=== PATIENT | male | born 1955 | race Caucasian/White ===

== ENCOUNTER 2024-07-04 16:19 | Emergency (ER) | payer MEDICARE, SELFPAY ==
[2024-07-04] VITALS (25 sets, daily range): BP systolic 156–183; BP diastolic 87–101; PULSE 58–79; RESP 9–23; TEMP 36.2; O2SAT 84–98
--- NOTE | ~2024-07-04 | XR_ITS ---
XR chest 1V portable Ordering provider: Siobhan Oconnor MD History: 68 years Male with . headache/weakness x2 days . Comparison: None. FINDINGS: MEDIASTINUM: The cardiac silhouette is not enlarged. Congestive peri. LUNGS: No effusions or pneumothorax. Opacification in the left lung base seen suggestive of atelectas is versus pneumonia. OTHER: No free air under the diaphragm. Degenerative spine. IMPRESSION: Left basilar atelectasis versus pneumonia. Reviewed, dictated and finalized at location A.
--- NOTE | ~2024-07-04 | CT_ITS ---
CT brain wo con Ordering provider: Siobhan Oconnor MD History: 68 years Male with . Anterior headache/ dizziness/ weakness x2 days. NKI . Comparison: None. Technique: CT of the head without contrast. Radiation reduction technique utilized.The dose-length product was 605.33 mGy-cm. FINDINGS: BRAIN PARENCHYMA AND CSF SPACES: Mild leukoaraiosis and diffuse cortical atrophy. Mild atheromatous d isease. No midline shift, mass effect or hemorrhage. The brain parenchyma and CSF spaces are otherwi se normal. VISUALIZED PARANASAL SINUSES: Well aerated. MASTOIDS: Well aerated. BONES: The bones appear intact. SOFT TISSUES: Visualized nasopharynx is normal. Superficial soft tissues are normal. IMPRESSION: No acute intracranial findings. Reviewed, dictated and finalized at location A.
--- NOTE | 2024-07-04 16:29 | ED_ITS ---
HPI - Headache General Chief Complaint: Headache Stated Complaint: high blood pressure and headache Time Seen by Provider: 07/04/24 16:28 Source: patient and family Mode of arrival: ambulatory Limitations: no limitations History of Present Illness HPI Narrative: 68 years old white male came from home by private car complaining of left frontal headache, pressure type started 2-3 days ago, patient denies aggravating or relieving factors. He denies any fever, chills, nausea, vomiting, blurry vision, difficulty swallowing or breathing. Patient tried to check his blood pressure today and was elevated, arrival to the ED was 175/90. patient is telling me that his headache is 5/10. History of diabetes, hypertension, hyperlipidemia, stroke 25 years ago with balance disorder and weakness left lower extremity and trouble finding words. Patient currently on MD elicited complaint: headache Related Data Allergies Allergy/AdvReac Type Severity Reaction Status Date / Time Penicillins Allergy Mild Rash Verified 07/04/24 16:30 Review of Systems 2 Review of Systems: All systems reviewed & are unremarkable except as noted in HPI and below Exam 2 Narrative: General appearance: Well-developed, well-nourished Skin: Normal color Head: Normocephalic, nontraumatic Eyes: Clear conjunctiva ENT: Oropharynx normal, ears normal, nose normal Neck: Supple, nontender Chest and respiratory: Airway patent, no respiratory distress, no accessory muscle use Heart: Regular rate/rhythm Abdomen: Soft, nontender, no organomegaly, quiet bowel sounds Vascular: Normal peripheral pulses, normal capillary refill. Musculoskeletal: Normal range of motion, nontender back Neurologic: Alert and oriented ×3, weakness left lower extremity 3/5 Course Vital Signs Vital signs: Vital Signs Temperature 36.2 C L 07/04/24 16:19 Pulse Rate 61 07/04/24 16:19 Respiratory Rate 14 07/04/24 16:19 Blood Pressure 175/90 H 07/04/24 16:19 Pulse Oximetry 97 07/04/24 16:19 Oxygen Delivery Room Air 07/04/24 16:19 Temperature 36.2 C L 07/04/24 16:19 Pulse Rate 59 L 07/04/24 17:28 Respiratory Rate 22 H 07/04/24 17:16 Blood Pressure 160/93 H 07/04/24 17:16 Pulse Oximetry 92 07/04/24 17:16 Oxygen Delivery Room Air 07/04/24 16:19 MDM - Headache MDM Narrative Medical decision making narrative: patient came to the ED from home with his family by private car complaining of left frontal headache 2-3 days ago, pressure type, denies any fever or chills or nausea or vomiting or focal neuro deficit. Vital signs showing blood pressure 175/19 otherwise within normal limit Physical examination no significant abnormality related to his headache Differential diagnosis include stress like symptoms, lack of sleep, intracranial pathology, temporalis arthritis, elevated blood pressure Blood workup today Lab Data 07/04/24 17:10 07/04/24 17:10 Labs: Lab Results 07/04/24 Range/Units 17:10 WBC 9.1 (4.8-10.8) K/mm3 RBC 5.57 (4.70-6.10) M/mm3 Hgb 17.0 H (12.4-15.3) g/dL Hct 51.5 H (37.0-46.0) % MCV 92.5 (78.0-102.0) fL MCH 30.5 (27.0-31.0) pg MCHC 33.0 (32-36) g/dL RDW 12.6 (11.6-14.4) % Plt Count 189 (150-420) K/mm3 MPV 10.9 (8.7-11.0) fl Immature Gran % (Auto) 0.6 H (0.0-0.0) % Neut % (Auto) 74.3 H (50.0-70.0) % Lymph % (Auto) 17.5 L (18.0-42.0) % [place] % (Auto) 5.9 (2.0-11.0) % Eos % (Auto) 0.8 L (1.0-6.0) % Baso % (Auto) 0.9 (0.0-1.0) % Lymph # (Auto) 1.59 (1.10-4.50) K/mm3 [place] # (Auto) 0.54 (0.10-0.90) K/mm3 Eos # (Auto) 0.07 (0.02-0.50) K/mm3 Baso # (Auto) 0.08 (0.00-0.10) K/mm3 Abs Immat Gran (auto) 0.05 H (0.00-0.00) K/mm3 Absolute Neuts (auto) 6.75 (1.70-7.20) K/mm3 Absolute Nucleated RBC 0.00 (0.00-0.00) K/mm3 Nucleated RBC % 0.0 (0-0.0) % PT Pending INR Pending APTT Pending Sodium Pending Potassium Pending Chloride Pending Carbon Dioxide Pending Anion Gap Pending BUN Pending Creatinine Pending Estim Creat Clear Calc Pending Estimated GFR Pending Glucose Pending Calculated Osmolality Pending Calcium Pending Total Bilirubin Pending AST Pending ALT Pending Alkaline Phosphatase Pending Troponin I Pending Total Protein Pending Albumin Pending Imaging Data Radiologist's impression: Impressions Head CT 07/04/24 16:54 IMPRESSION: No acute intracranial findings. Chest X-Ray 07/04/24 16:59 IMPRESSION: Left basilar atelectasis versus pneumonia. Discharge Plan Discharge Clinical Impression: Headache, Hypertension Patient Disposition: Home Condition: Improved Instructions: Acute Headache (ED) Additional Instructions: Return if symptoms are worsening , call your family physician for appointment, take Tylenol , ibuprofen as as needed for aches and pain, continue home medications. Patient Language: Romanian Prescriptions: New clonidine HCl 0.1 mg tablet 0.1 mg PO ONCE MDD every 12 hours as needed PRN (Reason: systolic blood pressure more than 160. every 12) Qty: 30 0RF Rx Instructions: may repeat every 1 hour not to exceed 0.7 mg per 24 hrs Follow-up/Referrals: Ga,TATE Ba [Primary Care Provider] -
--- NOTE | 2024-07-04 16:29 | ECG_ITS ---
Test Date: 2024-07-04 16:50:05 Measurements Intervals [place] Rate: 59 P: 93 SC: 167 QRS: 30 QRSD: 85 T: 150 QT: 376 QTc: 375 Interpretive Statements SINUS BRADYCARDIA LOW QRS VOLTAGE IN PRECORDIAL LEADS [QRS DEFLECTION < 1.0 mV IN CHEST LEADS] NONSPECIFIC T-WAVE ABNORMALITY ABNORMAL ECG No previous ECG available for comparison Electronically Signed On 07-05-2024 08:04:57 CDT by Enrique Jauregui M.D.
[2024-07-04] MEDS: ONDANSETRON INJ 4 MG/2 ML VIAL IV PUSH (16:52)
[2024-07-04] MEDS: MORPHINE SULFATE (*CRX) 4 MG/ML INJ IV PUSH (16:52)
--- OUTSIDE RECORDS SUMMARY | 2024-07-04 17:00 | XMS_ITS | Clinical Summary ---
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 Name Role Phone Hayder Koroma Primary Care Provider Allergies Active Allergy Reactions Criticality Noted Date Comments Lisinopril Angioedema Reaction: Angioedema, Penicillins Other (See comments),Swelling Medium 01/05/2020 Reaction: Other, , SWELLING OF GUMS AND LIPS Medications aspirin 81 mg tablet Take one by mouth one time per day 30 11 03/14/19 08 Active inhalational spacing device (Aerochamber MV) spacer Use with albuterol inhaler 1 each 02/10/20 23 Active OptiChamber Vivi Lg Mask spacer USE WITH ALBUTEROL INHALER 02/14/20 23 Active metFORMIN XR (GLUCOPHAGE XR) 500 mg 24 hr tablet TAKE 2 TABLETS(1000 MG) BY MOUTH TWICE DAILY 180 tablet 11 06/28/19 24 Active irbesartan (AVAPRO) 300 mg tabletIndicati ons:Hypertensi on associated with diabetes (HCC) Take 1 tablet (300 mg total) by mouth nightly 90 tablet 3 07/12/19 24 025 Active finasteride (PROSCAR) 5 mg tablet Take 1 tablet (5 mg total) by mouth daily 90 tablet 4 11/12/19 24 025 Active cyclobenzaprin e (FLEXERIL) 10 mg tablet Take 1 tablet (10 mg total) by mouth 3 (three) times a day as needed for muscle spasms 270 tablet 3 11/12/19 24 Active atorvastatin (LIPITOR) 40 mg tablet TAKE 1 TABLET(40 MG) BY MOUTH DAILY 90 tablet 3 11/26/19 24 Active fenofibrate (TRIGLIDE) 160 mg tablet TAKE 1 TABLET BY MOUTH EVERY DAY 30 tablet 11 01/22/20 24 Active gabapentin (NEURONTIN) 400 mg capsule TAKE 1 CAPSULE BY MOUTH THREE TIMES DAILY 90 capsule 01/22/20 24 Active semaglutide (Ozempic) 1 mg/dose (4 mg/3 mL) pen injector injection Inject 0.75 mL (1 mg total) under the skin once a week 3 mL 03/18/[address] (NexIUM) 20 mg capsule Take 1 capsule (20 mg total) by mouth daily before breakfast 30 capsule 03/18/19 25 026 Active levothyroxine (SYNTHROID) 125 mcg tablet TAKE 1 TABLET(125 MCG) BY MOUTH DAILY ON AN EMPTY STOMACH 100 tablet 1 03/25/19 25 Active tamsulosin (FLOMAX) 0.4 mg extended release capsule TAKE 1 CAPSULE(0.4 MG) BY MOUTH DAILY 90 capsule 3 06/23/19 25 Active tamsulosin (FLOMAX) 0.4 mg extended release capsule TAKE 1 CAPSULE(0.4 MG) BY MOUTH DAILY 90 capsule 06/28/19 24 025 Discontinued Active Problems Problem Noted Date Diagnosed Date Personal history of colonic polyps 03/04/2023 Benign prostatic hyperplasia (BPH) with straining on urination 02/14/2021 Assessment & Plan (02/14/2021 10:26 AM PAROLE AGENT): urencyon and off and weak stream trial flomax and see if helpful blader scan 23 ml on bladder scan and no retaining and if not doing it aand then trall relaxant. Tobacco use 09/26/2020 Assessment & Plan (11/11/2023 2:31 PM CDT): The patient was advised to quit smoking; the risks of continued tobacco use discussed. Assessment & Plan (07/12/2023 7:40 AM CDT): The patient was advised to quit smoking; the risks of continued tobacco use discussed. Assessment & Plan (03/25/2023 11:16 AM PAROLE AGENT): The patient was advised to quit smoking; the risks of continued tobacco use discussed. Assessment & Plan (03/13/2023 8:01 AM PAROLE AGENT): The patient was advised to quit smoking; the risks of continued tobacco use discussed. Assessment & Plan (11/07/2022 7:33 AM CDT): The patient was advised to quit smoking; the risks of continued tobacco use discussed. Assessment & Plan (03/22/2022 9:51 AM PAROLE AGENT): The patient was advised to quit smoking; the risks of continued tobacco use discussed. Assessment & Plan (09/26/2020 11:09 AM CDT): Ready to quit and has usesd chantix before and was off 6 months and ready to try again script sent in and reviewed piror use At low risk for fall 05/26/2020 Assessment & Plan (05/26/2020 10:50 AM CDT): Low fall risk Nocturia 01/15/2017 Assessment & Plan (01/26/2019 8:36 AM PAROLE AGENT): chweckpsa on return Assessment & Plan (05/13/2017 11:10 AM CDT): psa very low and risk of prostate cncer pretty well nihl. Check in a yr Assessment & Plan (01/15/2017 9:48 AM PAROLE AGENT): Check psa Sciatica of left side 09/05/2016 Assessment & Plan (09/05/2016 9:13 AM CDT): Completed pt and feels back to base with residual but tolerable and for now not planning on going back to pt. Doing self pt at home. [facility] 09/05/2016 Assessment & Plan (03/18/2024 7:30 AM PAROLE AGENT): Discussed routine screenings and vaccines Assessment & Plan (05/26/2020 10:54 AM CDT): Low fall risk depirensscreen neg cog screen stable and mildly impaired from prior damage. Up t9o date on psa colon good till 2022. Had flu shot and p shot series. Had covid shots alrelady. Assessment & Plan (09/05/2016 9:19 AM CDT): Last o.lv. Referred and ayde got a call will re refer Mixed hyperlipidemia 07/04/2013 Overview (05/24/2016): MIXED HYPERLIPIDEMIA Assessment & Plan (03/18/2024 7:30 AM PAROLE AGENT): Counseled on heart healthy diet exercise Assessment & Plan (11/11/2023 2:30 PM CDT): Counseled on heart healthy diet exercise Assessment & Plan (07/12/2023 7:40 AM CDT): Discussed heart healthy diet, exercise Assessment & Plan (05/13/2017 11:09 AM CDT): .ldl at 62 and great. No nchagesYour cholesterol in the form of ldl (bad) cholesterol,hdl(good) cholesterol and triglycerides are monitored. The triglycerides respond to reduction/controll of your simple carbs/sugars In such items as sugared soda/sweet tea along with fruit juices(containing natural sugar) even if no added sugar is added. LDL cholesterol is reduced with reducing daily intake of fats and vik. saturated fats. The monosaturated fats like olive oil are not harmful except in the calories they contained. Whole milk cheese needs to be remembered along with whole milk products And limited. Assessment & Plan (09/05/2016 9:14 AM CDT): ldl at 76 And good and no adjustmentsYour cholesterol in the form of ldl (bad) cholesterol,hdl(good) cholesterol and triglycerides are monitored. The triglycerides respond to reduction/controll of your simple carbs/sugars In such items as sugared soda/sweet tea along with fruit juices(containing natural sugar) even if no added sugar is added. LDL cholesterol is reduced with reducing daily intake of fats and vik. saturated fats. The monosaturated fats like olive oil are not harmful except in the calories they contained. Whole milk cheese needs to be remembered along with whole milk products And limited. Hypertension associated with diabetes 07/04/2013 Overview (05/25/2016): BENIGN HYPERTENSION Assessment & Plan (03/18/2024 7:30 AM PAROLE AGENT): Recommend DASH diet, heart healthy lifestyle, exercise. Discussed the risks of hypertension. Assessment & Plan (11/11/2023 2:30 PM CDT): Recommend DASH diet, heart healthy lifestyle, exercise. Discussed the risks of hypertension. Assessment & Plan (07/12/2023 7:39 AM CDT): Recommend DASH diet, heart healthy lifestyle, exercise. Discussed the risks of hypertension. Assessment & Plan (03/25/2023 11:16 AM PAROLE AGENT): Recommend DASH diet, heart healthy lifestyle, exercise. Discussed the risks of hypertension. Assessment & Plan (03/13/2023 8:02 AM PAROLE AGENT): Recommend DASH diet, heart healthy lifestyle, exercise. Discussed the risks of hypertension. Assessment & Plan (11/07/2022 7:33 AM CDT): Recommend DASH diet, heart healthy lifestyle, exercise. Discussed the risks of hypertension. Assessment & Plan (03/22/2022 9:51 AM PAROLE AGENT): Recommend DASH diet, heart healthy lifestyle, exercise. Discussed the risks of hypertension. Assessment & Plan (06/21/2021 2:38 PM CDT): bp good and a1c jumped off victoza to 8.8 try for trulicityDiabetes management or controll revolves around several core concepts : weight controll,controlling the intake of rapidly absorbed sugars(read simple carbs that get rapidly absorbed such as sweetened tea,sugared soda,fruit juices or portions of fruit over 1/2 cup at a time) as well at the need to increase the sugar burned up through an n increase in your baseline activity.Breads,potatotes(white,yellow,sweet are all the same),most cereals and noodles all breakdown to sugar rapidly. This rapid breakdown or absorption challenges the body into handling this surge of sugar. The more these factors are controlled the more the sugar will be controlled.Hypertension, Medical treament revolves around weight control, salt management, and meds when necessary. long as weight loss is necessary and you are able to drop weight we can cont to monitor the blood pressure and not add meds. Once the weight is not changing then it becomes nesessary to add meds to be able to reach the goal bp. Assessment & Plan (04/18/2021 8:04 AM PAROLE AGENT): Recommend DASH diet, heart-healthy lifestyle, exercise. Discussed the risks of hypertension. Assessment & Plan (02/14/2021 10:22 AM PAROLE AGENT): The bp good and kep meds same and a1c up to 6.8 and on lower dose caused by limitis on getting inj for now con and askto check with pharm if other med easilr to give Hypertension, Medical treament revolves around weight control, salt management, and meds when necessary. long as weight loss is necessary and you are able to drop weight we can cont to monitor the blood pressure and not add meds. Once the weight is not changing then it becomes nesessary to add meds to be able to reach the goal bp.Diabetes management or controll revolves around several core concepts : weight controll,controlling the intake of rapidly absorbed sugars(read simple carbs that get rapidly absorbed such as sweetened tea,sugared soda,fruit juices or portions of fruit over 1/2 cup at a time) as well at the need to increase the sugar burned up through an n increase in your baseline activity.Breads,potatotes(white,yellow,sweet are all the same),most cereals and noodles all breakdown to sugar rapidly. This rapid breakdown or absorption challenges the body into handling this surge of sugar. The more these factors are controlled the more the sugar will be controlled. Assessment & Plan (09/26/2020 11:08 AM CDT): Bop good and cothn meds as on and watch as if losesmore will seee bp drop moreHypertension, Medical treament revolves around weight control, salt management, and meds when necessary. long as weight loss is necessary and you are able to drop weight we can cont to monitor the blood pressure and not add meds. Once the weight is not changing then it becomes nesessary to add meds to be able to reach the goal bp. Assessment & Plan (05/26/2020 10:49 AM CDT): htn good at weight and meds and cotn as doing if able to drop more then bp andrea drop and Med need goes downHypertension, Medical treament revolves around weight control, salt management, and meds when necessary. long as weight loss is necessary and you are able to drop weight we can cont to monitor the blood pressure and not add meds. Once the weight is not changing then it becomes nesessary to add meds to be able to reach the goal bp. Assessment & Plan (02/26/2020 11:19 AM PAROLE AGENT): The bp good and no changes in meds for nowHypertension, Medical treament revolves around weight control, salt management, and meds when necessary. long as weight loss is necessary and you are able to drop weight we can cont to monitor the blood pressure and not add meds. Once the weight is not changing then it becomes nesessary to add meds to be able to reach the goal bp. Assessment & Plan (09/16/2019 3:30 PM CDT): The bp good and nochags in medsHypertension, Medical treament revolves around weight control, salt management, and meds when necessary. long as weight loss is necessary and you are able to drop weight we can cont to monitor the blood pressure and not add meds. Once the weight is not changing then it becomes nesessary to add meds to be able to reach the goal bp. Assessment & Plan (01/26/2019 8:34 AM PAROLE AGENT): bp low enough a nd will stopthe amlodiine 2.5 and see how works . If gains wt wiill likely need aagin the a1c at 6.9 acceptable and no changesHypertension, Medical treament revolves around weight control, salt management, and meds when necessary. long as weight loss is necessary and you are able to drop weight we can cont to monitor the blood pressure and not add meds. Once the weight is not changing then it becomes nesessary to add meds to be able to reach the goal bp.Diabetes management or controll revolves around several core concepts : weight controll,controlling the intake of rapidly absorbed sugars(read simple carbs that get rapidly absorbed such as sweetened tea,sugared soda,fruit juices or portions of fruit over 1/2 cup at a time) as well at the need to increase the sugar burned up through an n increase in your baseline activity.Breads,potatotes(white,yellow,sweet are all the same),most cereals and noodles all breakdown to sugar rapidly. This rapid breakdown or absorption challenges the body into handling this surge of sugar. The more these factors are controlled the more the sugar will be controlled. Assessment & Plan (09/23/2018 5:54 PM CDT): Recommend DASH diet, heart-healthy lifestyle, exercise. Discussed the risks of hypertension. Assessment & Plan (05/14/2018 11:59 AM CDT): bp go9od and no changesHypertension, Medical treament revolves around weight control, salt management, and meds when necessary. long as weight loss is necessary and you are able to drop weight we can cont to monitor the blood pressure and not add meds. Once the weight is not changing then it becomes nesessary to add meds to be able to reach the goal bp. Assessment & Plan (01/13/2018 10:16 AM PAROLE AGENT): The bp high nl and watch and if up any then will need meds adjusted. stoping the metformin from intolerance and going to 1.8 on the victoza. See hayder in about 3-4 wks to see if diarrhea gone and victoza tolerated. Hypertension, Medical treament revolves around weight control, salt management, and meds when necessary. long as weight loss is necessary and you are able to drop weight we can cont to monitor the blood pressure and not add meds. Once the weight is not changing then it becomes nesessary to add meds to be able to reach the goal bp.Diabetes management or controll revolves around several core concepts : weight controll,controlling the intake of rapidly absorbed sugars(read simple carbs that get rapidly absorbed such as sweetened tea,sugared soda,fruit juices or portions of fruit over 1/2 cup at a time) as well at the need to increase the sugar burned up through an n increase in your baseline activity.Breads,potatotes(white,yellow,sweet are all the same),most cereals and noodles all breakdown to sugar rapidly. This rapid breakdown or absorption challenges the body into handling this surge of sugar. The more these factors are controlled the more the sugar will be controlled. Assessment & Plan (05/13/2017 11:07 AM CDT): bp good and no changes, a1c inched up to 6.6 from 6.4 but 11 a yr ago so great compared to that. No changesHypertension, Medical treament revolves around weight control, salt management, and meds when necessary. long as weight loss is necessary and you are able to drop weight we can cont to monitor the blood pressure and not add meds. Once the weight is not changing then it becomes nesessary to add meds to be able to reach the goal bp.Diabetes management or controll revolves around several core concepts : weight controll,controlling the intake of rapidly absorbed sugars(read simple carbs that get rapidly absorbed such as sweetened tea,sugared soda,fruit juices or portions of fruit over 1/2 cup at a time) as well at the need to increase the sugar burned up through an n increase in your baseline activity.Breads,potatotes(white,yellow,sweet are all the same),most cereals and noodles all breakdown to sugar rapidly. This rapid breakdown or absorption challenges the body into handling this surge of sugar. The more these factors are controlled the more the sugar will be controlled. Assessment & Plan (01/15/2017 9:46 AM PAROLE AGENT): bp good and no co hanges. The a1c at 6.4 and 6.5 diabetes. No changesHypertension, Medical treament revolves around weight control, salt management, and meds when necessary. long as weight loss is necessary and you are able to drop weight we can cont to monitor the blood pressure and not add meds. Once the weight is not changing then it becomes nesessary to add meds to be able to reach the goal bp.Diabetes management or controll revolves around several core concepts : weight controll,controlling the intake of rapidly absorbed sugars(read simple carbs that get rapidly absorbed such as sweetened tea,sugared soda,fruit juices or portions of fruit over 1/2 cup at a time) as well at the need to increase the sugar burned up through an n increase in your baseline activity.Breads,potatotes(white,yellow,sweet are all the same),most cereals and noodles all breakdown to sugar rapidly. This rapid breakdown or absorption challenges the body into handling this surge of sugar. The more these factors are controlled the more the sugar will be controlled. Assessment & Plan (09/05/2016 9:14 AM CDT): bp good and no changes fro now. Hypertension, Medical treament revolves around weight control, salt management, and meds when necessary. long as weight loss is necessary and you are able to drop weight we can cont to monitor the blood pressure and not add meds. Once the weight is not changing then it becomes nesessary to add meds to be able to reach the goal bp. Type 2 diabetes mellitus with hyperlipidemia Overview (05/25/2016): DMII WO CMP NT ST UNCNTR Assessment & Plan (03/18/2024 7:30 AM PAROLE AGENT): The patient was counseled on a heart-healthy, diabetic-friendly diet, as well as life-style modification. Education provided on the diagnosis and risks of the disease. We will continue to monitor routine labs. Additionally, the patient was counseled on routine diabetic eye exams, foot exams, and other preventive care. Assessment & Plan (11/11/2023 2:30 PM CDT): The patient was counseled on a heart-healthy, diabetic-friendly diet, as well as life-style modification. Education provided on the diagnosis and risks of the disease. We will continue to monitor routine labs. Additionally, the patient was counseled on routine diabetic eye exams, foot exams, and other preventive care. Assessment & Plan (07/12/2023 7:40 AM CDT): The patient was counseled on a heart-healthy, diabetic-friendly diet, as well as life-style modification. Education provided on the diagnosis and risks of the disease. We will continue to monitor routine labs. Additionally, the patient was counseled on routine diabetic eye exams, foot exams, and other preventive care. Assessment & Plan (03/25/2023 11:16 AM PAROLE AGENT): The patient was counseled on a heart-healthy, diabetic-friendly diet, as well as life-style modification. Education provided on the diagnosis and risks of the disease. We will continue to monitor routine labs. Additionally, the patient was counseled on routine diabetic eye exams, foot exams, and other preventive care. Assessment & Plan (03/13/2023 8:01 AM PAROLE AGENT): The patient was counseled on a heart-healthy, diabetic-friendly diet, as well as life-style modification. Education provided on the diagnosis and risks of the disease. We will continue to monitor routine labs. Additionally, the patient was counseled on routine diabetic eye exams, foot exams, and other preventive care. Assessment & Plan (11/07/2022 7:33 AM CDT): The patient was counseled on a heart-healthy, diabetic-friendly diet, as well as life-style modification. Education provided on the diagnosis and risks of the disease. We will continue to monitor routine labs. Additionally, the patient was counseled on routine diabetic eye exams, foot exams, and other preventive care. Assessment & Plan (03/22/2022 9:51 AM PAROLE AGENT): The patient was counseled on a heart-healthy, diabetic-friendly diet, as well as life-style modification. Education provided on the diagnosis and risks of the disease. We will continue to monitor routine labs. Additionally, the patient was counseled on routine diabetic eye exams, foot exams, and other preventive care. Assessment & Plan (06/21/2021 2:37 PM CDT): Back on fenofibrate as tolerates atorva and fenofi andrea cont but the atorvaastaatin most important of Two off viiitoza and andrea tgry for trulicityYour cholesterol in the form of ldl (bad) cholesterol,hdl(good) cholesterol and triglycerides are monitored. The triglycerides respond to reduction/controll of your simple carbs/sugars In such items as sugared soda/sweet tea along with fruit juices(containing natural sugar) even if no added sugar is added. LDL cholesterol is reduced with reducing daily intake of fats and vik. saturated fats. The monosaturated fats like olive oil are not harmful except in the calories they contained. Whole milk cheese needs to be remembered along with whole milk products And limited.Diabetes management or controll revolves around several core concepts : weight controll,controlling the intake of rapidly absorbed sugars(read simple carbs that get rapidly absorbed such as sweetened tea,sugared soda,fruit juices or portions of fruit over 1/2 cup at a time) as well at the need to increase the sugar burned up through an n increase in your baseline activity.Breads,potatotes(white,yellow,sweet are all the same),most cereals and noodles all breakdown to sugar rapidly. This rapid breakdown or absorption challenges the body into handling this surge of sugar. The more these factors are controlled the more the sugar will be controlled. Assessment & Plan (02/14/2021 10:24 AM PAROLE AGENT): ldl jumped to 98 and was 67 so sugests missed med he feels did not but amount of mump suggests and leavve meds for ow and await recheckYour cholesterol in the form of ldl (bad) cholesterol,hdl(good) cholesterol and triglycerides are monitored. The triglycerides respond to reduction/controll of your simple carbs/sugars In such items as sugared soda/sweet tea along with fruit juices(containing natural sugar) even if no added sugar is added. LDL cholesterol is reduced with reducing daily intake of fats and vik. saturated fats. The monosaturated fats like olive oil are not harmful except in the calories they contained. Whole milk cheese needs to be remembered along with whole milk products And limited. Assessment & Plan (09/26/2020 11:08 AM CDT): a1c at 6.5 and was 7.3 and prior 7.8 ldl at 68 and great and keep it upYour cholesterol in the form of ldl (bad) cholesterol,hdl(good) cholesterol and triglycerides are monitored. The triglycerides respond to reduction/controll of your simple carbs/sugars In such items as sugared soda/sweet tea along with fruit juices(containing natural sugar) even if no added sugar is added. LDL cholesterol is reduced with reducing daily intake of fats and vik. saturated fats. The monosaturated fats like olive oil are not harmful except in the calories they contained. Whole milk cheese needs to be remembered along with whole milk products And limited.Diabetes management or controll revolves around several core concepts : weight controll,controlling the intake of rapidly absorbed sugars(read simple carbs that get rapidly absorbed such as sweetened tea,sugared soda,fruit juices or portions of fruit over 1/2 cup at a time) as well at the need to increase the sugar burned up through an n increase in your baseline activity.Breads,potatotes(white,yellow,sweet are all the same),most cereals and noodles all breakdown to sugar rapidly. This rapid breakdown or absorption challenges the body into handling this surge of sugar. The more these factors are controlled the more the sugar will be controlled. Assessment & Plan (05/26/2020 10:49 AM CDT): ldl at 60 and great and a1c dropped to 7.3 and lower then last 7.8 nian ding went up and just found out yesterday so asked to check his provider alisha he has and let use know pau has bettre coverage. Your cholesterol in the form of ldl (bad) cholesterol,hdl(good) cholesterol and triglycerides are monitored. The triglycerides respond to reduction/controll of your simple carbs/sugars In such items as sugared soda/sweet tea along with fruit juices(containing natural sugar) even if no added sugar is added. LDL cholesterol is reduced with reducing daily intake of fats and vik. saturated fats. The monosaturated fats like olive oil are not harmful except in the calories they contained. Whole milk cheese needs to be remembered along with whole milk products And limited.Diabetes management or controll revolves around several core concepts : weight controll,controlling the intake of rapidly absorbed sugars(read simple carbs that get rapidly absorbed such as sweetened tea,sugared soda,fruit juices or portions of fruit over 1/2 cup at a time) as well at the need to increase the sugar burned up through an n increase in your baseline activity.Breads,potatotes(white,yellow,sweet are all the same),most cereals and noodles all breakdown to sugar rapidly. This rapid breakdown or absorption challenges the body into handling this surge of sugar. The more these factors are controlled the more the sugar will be controlled. Assessment & Plan (02/26/2020 11:19 AM PAROLE AGENT): a1sc I[ tp 08/25 amd meds tohjter amd ;d; d75 gppd mp cjzges om ;o[ods bit start ,etfpr,om 500 once a day to start then bid and recheck refects Your cholesterol in the form of ldl (bad) cholesterol,hdl(good) cholesterol and triglycerides are monitored. The triglycerides respond to reduction/controll of your simple carbs/sugars In such items as sugared soda/sweet tea along with fruit juices(containing natural sugar) even if no added sugar is added. LDL cholesterol is reduced with reducing daily intake of fats and vik. saturated fats. The monosaturated fats like olive oil are not harmful except in the calories they contained. Whole milk cheese needs to be remembered along with whole milk products And limited.Diabetes management or controll revolves around several core concepts : weight controll,controlling the intake of rapidly absorbed sugars(read simple carbs that get rapidly absorbed such as sweetened tea,sugared soda,fruit juices or portions of fruit over 1/2 cup at a time) as well at the need to increase the sugar burned up through an n increase in your baseline activity.Breads,potatotes(white,yellow,sweet are all the same),most cereals and noodles all breakdown to sugar rapidly. This rapid breakdown or absorption challenges the body into handling this surge of sugar. The more these factors are controlled the more the sugar will be controlled. Assessment & Plan (09/16/2019 3:29 PM CDT): a1c at 7.0 and good for him and no chags and ldl at 65 and want here or even lower.Diabetes management or controll revolves around several core concepts : weight controll,controlling the intake of rapidly absorbed sugars(read simple carbs that get rapidly absorbed such as sweetened tea,sugared soda,fruit juices or portions of fruit over 1/2 cup at a time) as well at the need to increase the sugar burned up through an n increase in your baseline activity.Breads,potatotes(white,yellow,sweet are all the same),most cereals and noodles all breakdown to sugar rapidly. This rapid breakdown or absorption challenges the body into handling this surge of sugar. The more these factors are controlled the more the sugar will be controlled.Your cholesterol in the form of ldl (bad) cholesterol,hdl(good) cholesterol and triglycerides are monitored. The triglycerides respond to reduction/controll of your simple carbs/sugars In such items as sugared soda/sweet tea along with fruit juices(containing natural sugar) even if no added sugar is added. LDL cholesterol is reduced with reducing daily intake of fats and vik. saturated fats. The monosaturated fats like olive oil are not harmful except in the calories they contained. Whole milk cheese needs to be remembered along with whole milk products And limited. Assessment & Plan (01/26/2019 8:35 AM PAROLE AGENT): ldl at 64 and great and no chages in meds and congt dietYour cholesterol in the form of ldl (bad) cholesterol,hdl(good) cholesterol and triglycerides are monitored. The triglycerides respond to reduction/controll of your simple carbs/sugars In such items as sugared soda/sweet tea along with fruit juices(containing natural sugar) even if no added sugar is added. LDL cholesterol is reduced with reducing daily intake of fats and vik. saturated fats. The monosaturated fats like olive oil are not harmful except in the calories they contained. Whole milk cheese needs to be remembered along with whole milk products And limited. Assessment & Plan (09/23/2018 5:51 PM CDT): The patient was counseled on a heart-healthy, diabetic-friendly diet, as well as life-style modification. Education provided on the diagnosis and risks of the disease. We will continue to monitor routine labs. Additionally, He was counseled on routine diabetic eye exams, foot exams, and other preventive care. Assessment & Plan (05/14/2018 11:58 AM CDT): ldl at 73 and good and no changes but a1c up to 7.5 ans was in 6's so on max meds with victoza and feels an chenge diet and will go with that for nowYour cholesterol in the form of ldl (bad) cholesterol,hdl(good) cholesterol and triglycerides are monitored. The triglycerides respond to reduction/controll of your simple carbs/sugars In such items as sugared soda/sweet tea along with fruit juices(containing natural sugar) even if no added sugar is added. LDL cholesterol is reduced with reducing daily intake of fats and vik. saturated fats. The monosaturated fats like olive oil are not harmful except in the calories they contained. Whole milk cheese needs to be remembered along with whole milk products And limited.Diabetes management or controll revolves around several core concepts : weight controll,controlling the intake of rapidly absorbed sugars(read simple carbs that get rapidly absorbed such as sweetened tea,sugared soda,fruit juices or portions of fruit over 1/2 cup at a time) as well at the need to increase the sugar burned up through an n increase in your baseline activity.Breads,potatotes(white,yellow,sweet are all the same),most cereals and noodles all breakdown to sugar rapidly. This rapid breakdown or absorption challenges the body into handling this surge of sugar. The more these factors are controlled the more the sugar will be controlled. Assessment & Plan (02/19/2018 11:31 AM PAROLE AGENT): The patient was counseled on a heart-healthy, diabetic-friendly diet, as well as life-style modification. Education provided on the diagnosis and risks of the disease. We will continue to monitor routine labs. Additionally, the patient was counseled on routine diabetic eye exams, foot exams, and other preventive care. Assessment & Plan (01/13/2018 10:09 AM PAROLE AGENT): a1c at 6.7 and With stopoing metfominc and go to 1.8 on the victozaDiabetes management or controll revolves around several core concepts : weight controll,controlling the intake of rapidly absorbed sugars(read simple carbs that get rapidly absorbed such as sweetened tea,sugared soda,fruit juices or portions of fruit over 1/2 cup at a time) as well at the need to increase the sugar burned up through an n increase in your baseline activity.Breads,potatotes(white,yellow,sweet are all the same),most cereals and noodles all breakdown to sugar rapidly. This rapid breakdown or absorption challenges the body into handling this surge of sugar. The more these factors are controlled the more the sugar will be controlled.ldl at 72. Trigs 99 and hdl 32 hdl will comt up tieh stopping tobaco. No results found for requested labs within last 720 hours.] Assessment & Plan (01/15/2017 9:47 AM PAROLE AGENT): ldl at 63 great and no changesYour cholesterol in the form of ldl (bad) cholesterol,hdl(good) cholesterol and triglycerides are monitored. The triglycerides respond to reduction/controll of your simple carbs/sugars In such items as sugared soda/sweet tea along with fruit juices(containing natural sugar) even if no added sugar is added. LDL cholesterol is reduced with reducing daily intake of fats and vik. saturated fats. The monosaturated fats like olive oil are not harmful except in the calories they contained. Whole milk cheese needs to be remembered along with whole milk products And limited. Assessment & Plan (10/25/2016 11:34 AM CDT): Labs set for nov. And watch dietDiabetes management or controll revolves around several core concepts : weight controll,controlling the intake of rapidly absorbed sugars(read simple carbs that get rapidly absorbed such as sweetened tea,sugared soda,fruit juices or portions of fruit over 1/2 cup at a time) as well at the need to increase the sugar burned up through an n increase in your baseline activity.Breads,potatotes(white,yellow,sweet are all the same),most cereals and noodles all breakdown to sugar rapidly. This rapid breakdown or absorption challenges the body into handling this surge of sugar. The more these factors are controlled the more the sugar will be controlled. Assessment & Plan (09/05/2016 9:16 AM CDT): Urine free of diabetic damage. The a1c dropped from 10.9 and with the a dded inj of victoza now 6.2. This is less then the dx level for diabetes. So meds have done phenomanal. I expect the diet is also playing a role and encourage to cont. The med is at the mid dose and would not increase unless the sugar slines up. The meetformin and diarrhea. Reduce to 1 A day for diarrhea reasons. Taking a whole with the long acting meds should be less Likely to cause loose stool then a 1/2 twice a day. So Pay a ttention. Diabetes management or controll revolves around several core concepts : weight controll,controlling the intake of rapidly absorbed sugars(read simple carbs that get rapidly absorbed such as sweetened tea,sugared soda,fruit juices or portions of fruit over 1/2 cup at a time) as well at the need to increase the sugar burned up through an n increase in your baseline activity.Breads,potatotes(white,yellow,sweet are all the same),most cereals and noodles all breakdown to sugar rapidly. This rapid breakdown or absorption challenges the body into handling this surge of sugar. The more these factors are controlled the more the sugar will be controlled. Hypothyroidism 08/19/2012 Overview (05/26/2016): HYPOTHYROIDISM NOS Assessment & Plan (09/26/2020 11:08 AM CDT): tsh stable and contg meds as on Assessment & Plan (05/26/2020 10:57 AM CDT): Check tsh on ret urn Assessment & Plan (02/26/2020 11:20 AM PAROLE AGENT): Check tsh on ret urn Assessment & Plan (09/16/2019 3:30 PM CDT): tsh came up to nl and stay here for hnow Assessment & Plan (01/26/2019 8:35 AM PAROLE AGENT): gtsh 25 and will d rop the levo to 125 and recheck Assessment & Plan (05/14/2018 11:59 AM CDT): tsh low and andrea drop to 137 ug. From 150 Assessment & Plan (01/13/2018 10:07 AM PAROLE AGENT): Check tsh on return Assessment & Plan (05/13/2017 11:08 AM CDT): tsh to low at .07 and when low this means the blood levels of thyroid to High. On .150 and will go to .125 and see if n ot allow the tsh to drop b ack to n l. Assessment & Plan (01/15/2017 9:47 AM PAROLE AGENT): Check tsh on return Resolved Problems Problem Noted Date Diagnosed Date Resolved Date Encounter for screening colonoscopy 03/04/2023 03/13/2023 Smoker 06/21/2021 03/22/2022 Assessment & Plan (06/21/2021 2:38 PM CDT): Lo does screening ct of chest BMI 27.0-27.9,adult 10/25/2016 11/01/19 22 Assessment & Plan (06/21/2021 2:38 PM CDT): Wt stable Assessment & Plan (05/26/2020 10:50 AM CDT): Work to dorp some wt. Assessment & Plan (02/26/2020 11:20 AM PAROLE AGENT): Work to stop a few lbs. Assessment & Plan (09/16/2019 3:31 PM CDT): Work to keep stable Assessment & Plan (01/26/2019 8:36 AM PAROLE AGENT): Work to keep wt down Assessment & Plan (05/14/2018 11:59 AM CDT): Watch wt Assessment & Plan (05/13/2017 11:07 AM CDT): Being over weight is dealt with by restriction of you daily calories and increasing your calorie needs with increases in your work load/exercises or just increases in daily activity. There are different programs for weight loss and they all are felt to be relatively equally effective and you can make a choice as to what works for you. Pulmonary fibrosis 10/25/2016 Assessment & Plan (05/26/2020 10:47 AM CDT): Ongoing smoker and not able to stop choronic cough whtout limits for now Assessment & Plan (02/26/2020 11:20 AM PAROLE AGENT): Ongoing smoker and awre need to quit Assessment & Plan (09/16/2019 3:30 PM CDT): Ongoing smoker Assessment & Plan (05/14/2018 12:00 PM CDT): Off cig now Assessment & Plan (01/13/2018 10:10 AM PAROLE AGENT): tobaccon driving thius and Wants to retry chantix. Discussed quiting and what it takes Assessment & Plan (05/13/2017 11:09 AM CDT): Cough essentiall g gone and no limits but admits to smoking on andn off. Fall flu shots Assessment & Plan (10/25/2016 11:36 AM CDT): cxr with scarring on it and control exposure to paint fumes and cig smoke to prevent worsening Pneumonia of both lower lobe s due to infectious organism 10/17/2016 05/13/2017 Assessment & Plan (01/15/2017 9:48 AM PAROLE AGENT): Clinically nl. Will ask for a cxr on way out to Review old andnew cxr. Assessment & Plan (10/25/2016 11:31 AM CDT): Much better and see's new self. Leaving the brace off to help take more conssitent and bigger breaths. Assessment & Plan (10/17/2016 4:48 PM CDT): xry changes. Cough.fever and Pneumonia. Start zithromax 500 and in sevf eral days add the levaquin if not seeing better Neurogenic claudication 05/05/201308/18 Overview (05/25/2016): Neurogenic claudication Acute chest pain 10/31/2021 Encounters Date Type Department Care Team Description 07/02/2024 8:45 AM CDT [address] [address] Hypertension associated with diabetes (HCC); Acquired hypothyroidism; Mixed hyperlipidemia; Type 2 diabetes mellitus with hyperlipidemia (HCC); Screening PSA (prostate specific antigen) 06/23/2024 Telephone [facility] at [address] [phone] Hayder Koroma PA 05/05/2024 Telephone [facility] at [address] [phone] Hayder Koroma PA 04/14/2024 Telephone [facility] at [address] [phone] Hayder Koroma PA 04/08/2024 Telephone [facility] at [address] [phone] Hayder Koroma PA from Last 3 Months Immunizations Immunization Administration Dates Next Due Influenza, Quadrivalent, Hig h Dose, Preservative Free, Intrr 11/07/2022,10/31/2021,02/14/2021,02/25 Influenza, Quadrivalent, Spl it, Preservative Free, Intradermal 11/03/2015 Influenza, Quadrivalent, Spl it, Preservative Free, Intramuscular 01/26/2019,01/13/2018,01/15/2017 Influenza, Split 12/24/2012,12/12/2011, 0 Influenza, Trivalent, High D ose, Split, Preservative Free, Intramuscular 11/12/2023 Influenza, Trivalent, IM (MDV) 12/16/2008,2007 Influenza, Trivalent, Recomb inant, Egg Free, Preservative Free, Antibiotic Free, IM (FLUBLOK) 01/19/2014 Influenza, Unspecified 11/12/2023(Deferr ed: Patient Refused),10/31/2021(Deferred: Patient Refused),11/19/2019(Deferred: Patient Refused),03/30/2019(Deferred: Patient Refused) Moderna SARS-CoV-2 Monovalen t Vaccination (12+ YRS) 02/13/2022,07/05/2021,12/12/2020,04/13,03/18/2020 Pneumococcal Conjugate PCV 13 01/15/2017 Pneumococcal Polysaccharide PPV23 05/05/2013 Tdap 05/05/2013 Surgical History Surgery Date Site/Laterality Comments OTHER SURGICAL HISTORY R ELBOW SURGERY COLONOSCOPY 09/18/2016 - 10/18/2016 BACK SURGERY 02/18/2019 - 02/18/2020 L5 Medical History Medical History Date Comments Cerebrovascular accident (CVA) (HCC) 2006 Stroke, left side weak w/numbness. 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 Name Role Phone Hayder Koroma Primary Care Provider Encounters Date Type Department Care Team Description 07/02/2024 8:45 AM CDT Lab [address] [phone] Hypertension associated with diabetes (HCC); Acquired hypothyroidism; Mixed hyperlipidemia; Type 2 diabetes mellitus with hyperlipidemia (HCC); Screening PSA (prostate specific antigen) 06/23/2024 Telephone [facility] at [address] [phone] Hayder Koroma PA 05/05/2024 Telephone [facility] at [address] [phone] Hayder Koroma PA 04/14/2024 Telephone [facility] at [address] [phone] Hayder Koroma PA 04/08/2024 Telephone [facility] at [address] [phone] Hayder Koroma PA from Last 3 Months Allergies Active Allergy Reactions Criticality Noted Date Comments Lisinopril Angioedema Reaction: Angioedema, Penicillins Other (See comments),Swelling Medium 01/05/2020 Reaction: Other, , SWELLING OF GUMS AND LIPS Medications aspirin 81 mg tablet Take one by mouth one time per day 30 11 03/14/19 08 Active inhalational spacing device (Aerochamber MV) spacer Use with albuterol inhaler 1 each 02/10/20 Active OptiChamber Vivi Lg Mask spacer USE WITH ALBUTEROL INHALER 02/14/20 23 Active metFORMIN XR (GLUCOPHAGE XR) 500 mg 24 hr tablet TAKE 2 TABLETS(1000 MG) BY MOUTH TWICE DAILY 180 tablet 11 06/28/19 24 Active irbesartan (AVAPRO) 300 mg tabletIndicati ons:Hypertensi on associated with diabetes (HCC) Take 1 tablet (300 mg total) by mouth nightly 90 tablet 3 07/12/19 24 025 Active finasteride (PROSCAR) 5 mg tablet Take 1 tablet (5 mg total) by mouth daily 90 tablet 4 11/12/19 24 025 Active cyclobenzaprin e (FLEXERIL) 10 mg tablet Take 1 tablet (10 mg total) by mouth 3 (three) times a day as needed for muscle spasms 270 tablet 3 11/12/19 24 Active atorvastatin (LIPITOR) 40 mg tablet TAKE 1 TABLET(40 MG) BY MOUTH DAILY 90 tablet 3 11/26/19 24 Active fenofibrate (TRIGLIDE) 160 mg tablet TAKE 1 TABLET BY MOUTH EVERY DAY 30 tablet 11 01/22/20 24 Active gabapentin (NEURONTIN) 400 mg capsule TAKE 1 CAPSULE BY MOUTH THREE TIMES DAILY 90 capsule 11 01/22/20 24 Active semaglutide (Ozempic) 1 mg/dose (4 mg/3 mL) pen injector injection Inject 0.75 mL (1 mg total) under the skin once a week 3 mL 03/18/[address] (NexIUM) 20 mg capsule Take 1 capsule (20 mg total) by mouth daily before breakfast 30 capsule 03/18/19 25 026 Active levothyroxine (SYNTHROID) 125 mcg tablet TAKE 1 TABLET(125 MCG) BY MOUTH DAILY ON AN EMPTY STOMACH 100 tablet 1 03/25/19 25 Active tamsulosin (FLOMAX) 0.4 mg extended release capsule TAKE 1 CAPSULE(0.4 MG) BY MOUTH DAILY 90 capsule 3 06/23/19 25 Active tamsulosin (FLOMAX) 0.4 mg extended release capsule TAKE 1 CAPSULE(0.4 MG) BY MOUTH DAILY 90 capsule 3 06/28/19 24 025 Discontinued Active Problems Problem Noted Date Diagnosed Date Personal history of colonic polyps 03/04/2023 Benign prostatic hyperplasia (BPH) with straining on urination 02/14/2021 Assessment & Plan (02/14/2021 10:26 AM PAROLE AGENT): urencyon and off and weak stream trial flomax and see if helpful blader scan 23 ml on bladder scan and no retaining and if not doing it aand then trall relaxant. Tobacco use 09/26/2020 Assessment & Plan (11/11/2023 2:31 PM CDT): The patient was advised to quit smoking; the risks of continued tobacco use discussed. Assessment & Plan (07/12/2023 7:40 AM CDT): The patient was advised to quit smoking; the risks of continued tobacco use discussed. Assessment & Plan (03/25/2023 11:16 AM PAROLE AGENT): The patient was advised to quit smoking; the risks of continued tobacco use discussed. Assessment & Plan (03/13/2023 8:01 AM PAROLE AGENT): The patient was advised to quit smoking; the risks of continued tobacco use discussed. Assessment & Plan (11/07/2022 7:33 AM CDT): The patient was advised to quit smoking; the risks of continued tobacco use discussed. Assessment & Plan (03/22/2022 9:51 AM PAROLE AGENT): The patient was advised to quit smoking; the risks of continued tobacco use discussed. Assessment & Plan (09/26/2020 11:09 AM CDT): Ready to quit and has usesd chantix before and was off 6 months and ready to try again script sent in and reviewed piror use At low risk for fall 05/26/2020 Assessment & Plan (05/26/2020 10:50 AM CDT): Low fall risk Nocturia 01/15/2017 Assessment & Plan (01/26/2019 8:36 AM PAROLE AGENT): chweckpsa on return Assessment & Plan (05/13/2017 11:10 AM CDT): psa very low and risk of prostate cncer pretty well nihl. Check in a yr Assessment & Plan (01/15/2017 9:48 AM PAROLE AGENT): Check psa Sciatica of left side 09/05/2016 Assessment & Plan (09/05/2016 9:13 AM CDT): Completed pt and feels back to base with residual but tolerable and for now not planning on going back to pt. Doing self pt at home. On gabapentin to hellp PE (physical exam), annual 09/05/2016 Assessment & Plan (03/18/2024 7:30 AM PAROLE AGENT): Discussed routine screenings and vaccines Assessment & Plan (05/26/2020 10:54 AM CDT): Low fall risk depirensscreen neg cog screen stable and mildly impaired from prior damage. Up t9o date on psa colon good till 2022. Had flu shot and p shot series. Had covid shots alrelady. Assessment & Plan (09/05/2016 9:19 AM CDT): Last o.lv. Referred and ayde got a call will re refer Mixed hyperlipidemia 07/04/2013 Overview (05/24/2016): MIXED HYPERLIPIDEMIA Assessment & Plan (03/18/2024 7:30 AM PAROLE AGENT): Counseled on heart healthy diet exercise Assessment & Plan (11/11/2023 2:30 PM CDT): Counseled on heart healthy diet exercise Assessment & Plan (07/12/2023 7:40 AM CDT): Discussed heart healthy diet, exercise Assessment & Plan (05/13/2017 11:09 AM CDT): .ldl at 62 and great. No nchagesYour cholesterol in the form of ldl (bad) cholesterol,hdl(good) cholesterol and triglycerides are monitored. The triglycerides respond to reduction/controll of your simple carbs/sugars In such items as sugared soda/sweet tea along with fruit juices(containing natural sugar) even if no added sugar is added. LDL cholesterol is reduced with reducing daily intake of fats and vik. saturated fats. The monosaturated fats like olive oil are not harmful except in the calories they contained. Whole milk cheese needs to be remembered along with whole milk products And limited. Assessment & Plan (09/05/2016 9:14 AM CDT): ldl at 76 And good and no adjustmentsYour cholesterol in the form of ldl (bad) cholesterol,hdl(good) cholesterol and triglycerides are monitored. The triglycerides respond to reduction/controll of your simple carbs/sugars In such items as sugared soda/sweet tea along with fruit juices(containing natural sugar) even if no added sugar is added. LDL cholesterol is reduced with reducing daily intake of fats and vik. saturated fats. The monosaturated fats like olive oil are not harmful except in the calories they contained. Whole milk cheese needs to be remembered along with whole milk products And limited. Hypertension associated with diabetes 07/04/2013 Overview (05/25/2016): BENIGN HYPERTENSION Assessment & Plan (03/18/2024 7:30 AM PAROLE AGENT): Recommend DASH diet, heart healthy lifestyle, exercise. Discussed the risks of hypertension. Assessment & Plan (11/11/2023 2:30 PM CDT): Recommend DASH diet, heart healthy lifestyle, exercise. Discussed the risks of hypertension. Assessment & Plan (07/12/2023 7:39 AM CDT): Recommend DASH diet, heart healthy lifestyle, exercise. Discussed the risks of hypertension. Assessment & Plan (03/25/2023 11:16 AM PAROLE AGENT): Recommend DASH diet, heart healthy lifestyle, exercise. Discussed the risks of hypertension. Assessment & Plan (03/13/2023 8:02 AM PAROLE AGENT): Recommend DASH diet, heart healthy lifestyle, exercise. Discussed the risks of hypertension. Assessment & Plan (11/07/2022 7:33 AM CDT): Recommend DASH diet, heart healthy lifestyle, exercise. Discussed the risks of hypertension. Assessment & Plan (03/22/2022 9:51 AM PAROLE AGENT): Recommend DASH diet, heart healthy lifestyle, exercise. Discussed the risks of hypertension. Assessment & Plan (06/21/2021 2:38 PM CDT): bp good and a1c jumped off victoza to 8.8 try for trulicityDiabetes management or controll revolves around several core concepts : weight controll,controlling the intake of rapidly absorbed sugars(read simple carbs that get rapidly absorbed such as sweetened tea,sugared soda,fruit juices or portions of fruit over 1/2 cup at a time) as well at the need to increase the sugar burned up through an n increase in your baseline activity.Breads,potatotes(white,yellow,sweet are all the same),most cereals and noodles all breakdown to sugar rapidly. This rapid breakdown or absorption challenges the body into handling this surge of sugar. The more these factors are controlled the more the sugar will be controlled.Hypertension, Medical treament revolves around weight control, salt management, and meds when necessary. long as weight loss is necessary and you are able to drop weight we can cont to monitor the blood pressure and not add meds. Once the weight is not changing then it becomes nesessary to add meds to be able to reach the goal bp. Assessment & Plan (04/18/2021 8:04 AM PAROLE AGENT): Recommend DASH diet, heart-healthy lifestyle, exercise. Discussed the risks of hypertension. Assessment & Plan (02/14/2021 10:22 AM PAROLE AGENT): The bp good and kep meds same and a1c up to 6.8 and on lower dose caused by limitis on getting inj for now con and askto check with pharm if other med easilr to give Hypertension, Medical treament revolves around weight control, salt management, and meds when necessary. long as weight loss is necessary and you are able to drop weight we can cont to monitor the blood pressure and not add meds. Once the weight is not changing then it becomes nesessary to add meds to be able to reach the goal bp.Diabetes management or controll revolves around several core concepts : weight controll,controlling the intake of rapidly absorbed sugars(read simple carbs that get rapidly absorbed such as sweetened tea,sugared soda,fruit juices or portions of fruit over 1/2 cup at a time) as well at the need to increase the sugar burned up through an n increase in your baseline activity.Breads,potatotes(white,yellow,sweet are all the same),most cereals and noodles all breakdown to sugar rapidly. This rapid breakdown or absorption challenges the body into handling this surge of sugar. The more these factors are controlled the more the sugar will be controlled. Assessment & Plan (09/26/2020 11:08 AM CDT): Bop good and cothn meds as on and watch as if losesmore will seee bp drop moreHypertension, Medical treament revolves around weight control, salt management, and meds when necessary. long as weight loss is necessary and you are able to drop weight we can cont to monitor the blood pressure and not add meds. Once the weight is not changing then it becomes nesessary to add meds to be able to reach the goal bp. Assessment & Plan (05/26/2020 10:49 AM CDT): htn good at weight and meds and cotn as doing if able to drop more then bp andrea drop and Med need goes downHypertension, Medical treament revolves around weight control, salt management, and meds when necessary. long as weight loss is necessary and you are able to drop weight we can cont to monitor the blood pressure and not add meds. Once the weight is not changing then it becomes nesessary to add meds to be able to reach the goal bp. Assessment & Plan (02/26/2020 11:19 AM PAROLE AGENT): The bp good and no changes in meds for nowHypertension, Medical treament revolves around weight control, salt management, and meds when necessary. long as weight loss is necessary and you are able to drop weight we can cont to monitor the blood pressure and not add meds. Once the weight is not changing then it becomes nesessary to add meds to be able to reach the goal bp. Assessment & Plan (09/16/2019 3:30 PM CDT): The bp good and nochags in medsHypertension, Medical treament revolves around weight control, salt management, and meds when necessary. long as weight loss is necessary and you are able to drop weight we can cont to monitor the blood pressure and not add meds. Once the weight is not changing then it becomes nesessary to add meds to be able to reach the goal bp. Assessment & Plan (01/26/2019 8:34 AM PAROLE AGENT): bp low enough a nd will stopthe amlodiine 2.5 and see how works . If gains wt wiill likely need aagin the a1c at 6.9 acceptable and no changesHypertension, Medical treament revolves around weight control, salt management, and meds when necessary. long as weight loss is necessary and you are able to drop weight we can cont to monitor the blood pressure and not add meds. Once the weight is not changing then it becomes nesessary to add meds to be able to reach the goal bp.Diabetes management or controll revolves around several core concepts : weight controll,controlling the intake of rapidly absorbed sugars(read simple carbs that get rapidly absorbed such as sweetened tea,sugared soda,fruit juices or portions of fruit over 1/2 cup at a time) as well at the need to increase the sugar burned up through an n increase in your baseline activity.Breads,potatotes(white,yellow,sweet are all the same),most cereals and noodles all breakdown to sugar rapidly. This rapid breakdown or absorption challenges the body into handling this surge of sugar. The more these factors are controlled the more the sugar will be controlled. Assessment & Plan (09/23/2018 5:54 PM CDT): Recommend DASH diet, heart-healthy lifestyle, exercise. Discussed the risks of hypertension. Assessment & Plan (05/14/2018 11:59 AM CDT): bp go9od and no changesHypertension, Medical treament revolves around weight control, salt management, and meds when necessary. long as weight loss is necessary and you are able to drop weight we can cont to monitor the blood pressure and not add meds. Once the weight is not changing then it becomes nesessary to add meds to be able to reach the goal bp. Assessment & Plan (01/13/2018 10:16 AM PAROLE AGENT): The bp high nl and watch and if up any then will need meds adjusted. stoping the metformin from intolerance and going to 1.8 on the victoza. See hayder in about 3-4 wks to see if diarrhea gone and victoza tolerated. Hypertension, Medical treament revolves around weight control, salt management, and meds when necessary. long as weight loss is necessary and you are able to drop weight we can cont to monitor the blood pressure and not add meds. Once the weight is not changing then it becomes nesessary to add meds to be able to reach the goal bp.Diabetes management or controll revolves around several core concepts : weight controll,controlling the intake of rapidly absorbed sugars(read simple carbs that get rapidly absorbed such as sweetened tea,sugared soda,fruit juices or portions of fruit over 1/2 cup at a time) as well at the need to increase the sugar burned up through an n increase in your baseline activity.Breads,potatotes(white,yellow,sweet are all the same),most cereals and noodles all breakdown to sugar rapidly. This rapid breakdown or absorption challenges the body into handling this surge of sugar. The more these factors are controlled the more the sugar will be controlled. Assessment & Plan (05/13/2017 11:07 AM CDT): bp good and no changes, a1c inched up to 6.6 from 6.4 but 11 a yr ago so great compared to that. No changesHypertension, Medical treament revolves around weight control, salt management, and meds when necessary. long as weight loss is necessary and you are able to drop weight we can cont to monitor the blood pressure and not add meds. Once the weight is not changing then it becomes nesessary to add meds to be able to reach the goal bp.Diabetes management or controll revolves around several core concepts : weight controll,controlling the intake of rapidly absorbed sugars(read simple carbs that get rapidly absorbed such as sweetened tea,sugared soda,fruit juices or portions of fruit over 1/2 cup at a time) as well at the need to increase the sugar burned up through an n increase in your baseline activity.Breads,potatotes(white,yellow,sweet are all the same),most cereals and noodles all breakdown to sugar rapidly. This rapid breakdown or absorption challenges the body into handling this surge of sugar. The more these factors are controlled the more the sugar will be controlled. Assessment & Plan (01/15/2017 9:46 AM PAROLE AGENT): bp good and no co hanges. The a1c at 6.4 and 6.5 diabetes. No changesHypertension, Medical treament revolves around weight control, salt management, and meds when necessary. long as weight loss is necessary and you are able to drop weight we can cont to monitor the blood pressure and not add meds. Once the weight is not changing then it becomes nesessary to add meds to be able to reach the goal bp.Diabetes management or controll revolves around several core concepts : weight controll,controlling the intake of rapidly absorbed sugars(read simple carbs that get rapidly absorbed such as sweetened tea,sugared soda,fruit juices or portions of fruit over 1/2 cup at a time) as well at the need to increase the sugar burned up through an n increase in your baseline activity.Breads,potatotes(white,yellow,sweet are all the same),most cereals and noodles all breakdown to sugar rapidly. This rapid breakdown or absorption challenges the body into handling this surge of sugar. The more these factors are controlled the more the sugar will be controlled. Assessment & Plan (09/05/2016 9:14 AM CDT): bp good and no changes fro now. Hypertension, Medical treament revolves around weight control, salt management, and meds when necessary. long as weight loss is necessary and you are able to drop weight we can cont to monitor the blood pressure and not add meds. Once the weight is not changing then it becomes nesessary to add meds to be able to reach the goal bp. Type 2 diabetes mellitus with hyperlipidemia Overview (05/25/2016): DMII WO CMP NT ST UNCNTR Assessment & Plan (03/18/2024 7:30 AM PAROLE AGENT): The patient was counseled on a heart-healthy, diabetic-friendly diet, as well as life-style modification. Education provided on the diagnosis and risks of the disease. We will continue to monitor routine labs. Additionally, the patient was counseled on routine diabetic eye exams, foot exams, and other preventive care. Assessment & Plan (11/11/2023 2:30 PM CDT): The patient was counseled on a heart-healthy, diabetic-friendly diet, as well as life-style modification. Education provided on the diagnosis and risks of the disease. We will continue to monitor routine labs. Additionally, the patient was counseled on routine diabetic eye exams, foot exams, and other preventive care. Assessment & Plan (07/12/2023 7:40 AM CDT): The patient was counseled on a heart-healthy, diabetic-friendly diet, as well as life-style modification. Education provided on the diagnosis and risks of the disease. We will continue to monitor routine labs. Additionally, the patient was counseled on routine diabetic eye exams, foot exams, and other preventive care. Assessment & Plan (03/25/2023 11:16 AM PAROLE AGENT): The patient was counseled on a heart-healthy, diabetic-friendly diet, as well as life-style modification. Education provided on the diagnosis and risks of the disease. We will continue to monitor routine labs. Additionally, the patient was counseled on routine diabetic eye exams, foot exams, and other preventive care. Assessment & Plan (03/13/2023 8:01 AM PAROLE AGENT): The patient was counseled on a heart-healthy, diabetic-friendly diet, as well as life-style modification. Education provided on the diagnosis and risks of the disease. We will continue to monitor routine labs. Additionally, the patient was counseled on routine diabetic eye exams, foot exams, and other preventive care. Assessment & Plan (11/07/2022 7:33 AM CDT): The patient was counseled on a heart-healthy, diabetic-friendly diet, as well as life-style modification. Education provided on the diagnosis and risks of the disease. We will continue to monitor routine labs. Additionally, the patient was counseled on routine diabetic eye exams, foot exams, and other preventive care. Assessment & Plan (03/22/2022 9:51 AM PAROLE AGENT): The patient was counseled on a heart-healthy, diabetic-friendly diet, as well as life-style modification. Education provided on the diagnosis and risks of the disease. We will continue to monitor routine labs. Additionally, the patient was counseled on routine diabetic eye exams, foot exams, and other preventive care. Assessment & Plan (06/21/2021 2:37 PM CDT): Back on fenofibrate as tolerates atorva and fenofi andrea cont but the atorvaastaatin most important of Two off viiitoza and andrea tgry for trulicityYour cholesterol in the form of ldl (bad) cholesterol,hdl(good) cholesterol and triglycerides are monitored. The triglycerides respond to reduction/controll of your simple carbs/sugars In such items as sugared soda/sweet tea along with fruit juices(containing natural sugar) even if no added sugar is added. LDL cholesterol is reduced with reducing daily intake of fats and vik. saturated fats. The monosaturated fats like olive oil are not harmful except in the calories they contained. Whole milk cheese needs to be remembered along with whole milk products And limited.Diabetes management or controll revolves around several core concepts : weight controll,controlling the intake of rapidly absorbed sugars(read simple carbs that get rapidly absorbed such as sweetened tea,sugared soda,fruit juices or portions of fruit over 1/2 cup at a time) as well at the need to increase the sugar burned up through an n increase in your baseline activity.Breads,potatotes(white,yellow,sweet are all the same),most cereals and noodles all breakdown to sugar rapidly. This rapid breakdown or absorption challenges the body into handling this surge of sugar. The more these factors are controlled the more the sugar will be controlled. Assessment & Plan (02/14/2021 10:24 AM PAROLE AGENT): ldl jumped to 98 and was 67 so sugests missed med he feels did not but amount of mump suggests and leavve meds for ow and await recheckYour cholesterol in the form of ldl (bad) cholesterol,hdl(good) cholesterol and triglycerides are monitored. The triglycerides respond to reduction/controll of your simple carbs/sugars In such items as sugared soda/sweet tea along with fruit juices(containing natural sugar) even if no added sugar is added. LDL cholesterol is reduced with reducing daily intake of fats and vik. saturated fats. The monosaturated fats like olive oil are not harmful except in the calories they contained. Whole milk cheese needs to be remembered along with whole milk products And limited. Assessment & Plan (09/26/2020 11:08 AM CDT): a1c at 6.5 and was 7.3 and prior 7.8 ldl at 68 and great and keep it upYour cholesterol in the form of ldl (bad) cholesterol,hdl(good) cholesterol and triglycerides are monitored. The triglycerides respond to reduction/controll of your simple carbs/sugars In such items as sugared soda/sweet tea along with fruit juices(containing natural sugar) even if no added sugar is added. LDL cholesterol is reduced with reducing daily intake of fats and vik. saturated fats. The monosaturated fats like olive oil are not harmful except in the calories they contained. Whole milk cheese needs to be remembered along with whole milk products And limited.Diabetes management or controll revolves around several core concepts : weight controll,controlling the intake of rapidly absorbed sugars(read simple carbs that get rapidly absorbed such as sweetened tea,sugared soda,fruit juices or portions of fruit over 1/2 cup at a time) as well at the need to increase the sugar burned up through an n increase in your baseline activity.Breads,potatotes(white,yellow,sweet are all the same),most cereals and noodles all breakdown to sugar rapidly. This rapid breakdown or absorption challenges the body into handling this surge of sugar. The more these factors are controlled the more the sugar will be controlled. Assessment & Plan (05/26/2020 10:49 AM CDT): ldl at 59 and great and a1c dropped to 7.3 and lower then last 7.8 nina ding went up and just found out yesterday so asked to check his provider alisha he has and let use know whgoldyt has bettre coverage. Your cholesterol in the form of ldl (bad) cholesterol,hdl(good) cholesterol and triglycerides are monitored. The triglycerides respond to reduction/controll of your simple carbs/sugars In such items as sugared soda/sweet tea along with fruit juices(containing natural sugar) even if no added sugar is added. LDL cholesterol is reduced with reducing daily intake of fats and vik. saturated fats. The monosaturated fats like olive oil are not harmful except in the calories they contained. Whole milk cheese needs to be remembered along with whole milk products And limited.Diabetes management or controll revolves around several core concepts : weight controll,controlling the intake of rapidly absorbed sugars(read simple carbs that get rapidly absorbed such as sweetened tea,sugared soda,fruit juices or portions of fruit over 1/2 cup at a time) as well at the need to increase the sugar burned up through an n increase in your baseline activity.Breads,potatotes(white,yellow,sweet are all the same),most cereals and noodles all breakdown to sugar rapidly. This rapid breakdown or absorption challenges the body into handling this surge of sugar. The more these factors are controlled the more the sugar will be controlled. Assessment & Plan (02/26/2020 11:19 AM PAROLE AGENT): a1sc I[ tp 08/25 amd meds toter amd ;d; d75 gppd mp cjzges om ;o[ods bit start ,etfpr,om 500 once a day to start then bid and recheck refects Your cholesterol in the form of ldl (bad) cholesterol,hdl(good) cholesterol and triglycerides are monitored. The triglycerides respond to reduction/controll of your simple carbs/sugars In such items as sugared soda/sweet tea along with fruit juices(containing natural sugar) even if no added sugar is added. LDL cholesterol is reduced with reducing daily intake of fats and vik. saturated fats. The monosaturated fats like olive oil are not harmful except in the calories they contained. Whole milk cheese needs to be remembered along with whole milk products And limited.Diabetes management or controll revolves around several core concepts : weight controll,controlling the intake of rapidly absorbed sugars(read simple carbs that get rapidly absorbed such as sweetened tea,sugared soda,fruit juices or portions of fruit over 1/2 cup at a time) as well at the need to increase the sugar burned up through an n increase in your baseline activity.Breads,potatotes(white,yellow,sweet are all the same),most cereals and noodles all breakdown to sugar rapidly. This rapid breakdown or absorption challenges the body into handling this surge of sugar. The more these factors are controlled the more the sugar will be controlled. Assessment & Plan (09/16/2019 3:29 PM CDT): a1c at 7.0 and good for him and no chags and ldl at 64 and want here or even lower.Diabetes management or controll revolves around several core concepts : weight controll,controlling the intake of rapidly absorbed sugars(read simple carbs that get rapidly absorbed such as sweetened tea,sugared soda,fruit juices or portions of fruit over 1/2 cup at a time) as well at the need to increase the sugar burned up through an n increase in your baseline activity.Breads,potatotes(white,yellow,sweet are all the same),most cereals and noodles all breakdown to sugar rapidly. This rapid breakdown or absorption challenges the body into handling this surge of sugar. The more these factors are controlled the more the sugar will be controlled.Your cholesterol in the form of ldl (bad) cholesterol,hdl(good) cholesterol and triglycerides are monitored. The triglycerides respond to reduction/controll of your simple carbs/sugars In such items as sugared soda/sweet tea along with fruit juices(containing natural sugar) even if no added sugar is added. LDL cholesterol is reduced with reducing daily intake of fats and vik. saturated fats. The monosaturated fats like olive oil are not harmful except in the calories they contained. Whole milk cheese needs to be remembered along with whole milk products And limited. Assessment & Plan (01/26/2019 8:35 AM PAROLE AGENT): ldl at 63 and great and no chages in meds and congt dietYour cholesterol in the form of ldl (bad) cholesterol,hdl(good) cholesterol and triglycerides are monitored. The triglycerides respond to reduction/controll of your simple carbs/sugars In such items as sugared soda/sweet tea along with fruit juices(containing natural sugar) even if no added sugar is added. LDL cholesterol is reduced with reducing daily intake of fats and vik. saturated fats. The monosaturated fats like olive oil are not harmful except in the calories they contained. Whole milk cheese needs to be remembered along with whole milk products And limited. Assessment & Plan (09/23/2018 5:51 PM CDT): The patient was counseled on a heart-healthy, diabetic-friendly diet, as well as life-style modification. Education provided on the diagnosis and risks of the disease. We will continue to monitor routine labs. Additionally, He was counseled on routine diabetic eye exams, foot exams, and other preventive care. Assessment & Plan (05/14/2018 11:58 AM CDT): ldl at 72 and good and no changes but a1c up to 7.5 ans was in 6's so on max meds with victoza and feels an chenge diet and will go with that for nowYour cholesterol in the form of ldl (bad) cholesterol,hdl(good) cholesterol and triglycerides are monitored. The triglycerides respond to reduction/controll of your simple carbs/sugars In such items as sugared soda/sweet tea along with fruit juices(containing natural sugar) even if no added sugar is added. LDL cholesterol is reduced with reducing daily intake of fats and vik. saturated fats. The monosaturated fats like olive oil are not harmful except in the calories they contained. Whole milk cheese needs to be remembered along with whole milk products And limited.Diabetes management or controll revolves around several core concepts : weight controll,controlling the intake of rapidly absorbed sugars(read simple carbs that get rapidly absorbed such as sweetened tea,sugared soda,fruit juices or portions of fruit over 1/2 cup at a time) as well at the need to increase the sugar burned up through an n increase in your baseline activity.Breads,potatotes(white,yellow,sweet are all the same),most cereals and noodles all breakdown to sugar rapidly. This rapid breakdown or absorption challenges the body into handling this surge of sugar. The more these factors are controlled the more the sugar will be controlled. Assessment & Plan (02/19/2018 11:31 AM PAROLE AGENT): The patient was counseled on a heart-healthy, diabetic-friendly diet, as well as life-style modification. Education provided on the diagnosis and risks of the disease. We will continue to monitor routine labs. Additionally, the patient was counseled on routine diabetic eye exams, foot exams, and other preventive care. Assessment & Plan (01/13/2018 10:09 AM PAROLE AGENT): a1c at 6.7 and With stopoing metfominc and go to 1.8 on the victozaDiabetes management or controll revolves around several core concepts : weight controll,controlling the intake of rapidly absorbed sugars(read simple carbs that get rapidly absorbed such as sweetened tea,sugared soda,fruit juices or portions of fruit over 1/2 cup at a time) as well at the need to increase the sugar burned up through an n increase in your baseline activity.Breads,potatotes(white,yellow,sweet are all the same),most cereals and noodles all breakdown to sugar rapidly. This rapid breakdown or absorption challenges the body into handling this surge of sugar. The more these factors are controlled the more the sugar will be controlled.ldl at 72. Trigs 99 and hdl 32 hdl will comt up tieh stopping tobaco. No results found for requested labs within last 720 hours.] Assessment & Plan (01/15/2017 9:47 AM PAROLE AGENT): ldl at 63 great and no changesYour cholesterol in the form of ldl (bad) cholesterol,hdl(good) cholesterol and triglycerides are monitored. The triglycerides respond to reduction/controll of your simple carbs/sugars In such items as sugared soda/sweet tea along with fruit juices(containing natural sugar) even if no added sugar is added. LDL cholesterol is reduced with reducing daily intake of fats and vik. saturated fats. The monosaturated fats like olive oil are not harmful except in the calories they contained. Whole milk cheese needs to be remembered along with whole milk products And limited. Assessment & Plan (10/25/2016 11:34 AM CDT): Labs set for nov. And watch dietDiabetes management or controll revolves around several core concepts : weight controll,controlling the intake of rapidly absorbed sugars(read simple carbs that get rapidly absorbed such as sweetened tea,sugared soda,fruit juices or portions of fruit over 1/2 cup at a time) as well at the need to increase the sugar burned up through an n increase in your baseline activity.Breads,potatotes(white,yellow,sweet are all the same),most cereals and noodles all breakdown to sugar rapidly. This rapid breakdown or absorption challenges the body into handling this surge of sugar. The more these factors are controlled the more the sugar will be controlled. Assessment & Plan (09/05/2016 9:16 AM CDT): Urine free of diabetic damage. The a1c dropped from 10.9 and with the a dded inj of victoza now 6.2. This is less then the dx level for diabetes. So meds have done phenomanal. I expect the diet is also playing a role and encourage to cont. The med is at the mid dose and would not increase unless the sugar slines up. The meetformin and diarrhea. Reduce to 1 A day for diarrhea reasons. Taking a whole with the long acting meds should be less Likely to cause loose stool then a 1/2 twice a day. So Pay a ttention. Diabetes management or controll revolves around several core concepts : weight controll,controlling the intake of rapidly absorbed sugars(read simple carbs that get rapidly absorbed such as sweetened tea,sugared soda,fruit juices or portions of fruit over 1/2 cup at a time) as well at the need to increase the sugar burned up through an n increase in your baseline activity.Breads,potatotes(white,yellow,sweet are all the same),most cereals and noodles all breakdown to sugar rapidly. This rapid breakdown or absorption challenges the body into handling this surge of sugar. The more these factors are controlled the more the sugar will be controlled. Hypothyroidism 08/19/2012 Overview (05/26/2016): HYPOTHYROIDISM NOS Assessment & Plan (09/26/2020 11:08 AM CDT): tsh stable and contg meds as on Assessment & Plan (05/26/2020 10:57 AM CDT): Check tsh on ret urn Assessment & Plan (02/26/2020 11:20 AM PAROLE AGENT): Check tsh on ret urn Assessment & Plan (09/16/2019 3:30 PM CDT): tsh came up to nl and stay here for hnow Assessment & Plan (01/26/2019 8:35 AM PAROLE AGENT): gtsh 25 and will d rop the levo to 125 and recheck Assessment & Plan (05/14/2018 11:59 AM CDT): tsh low and andrea drop to 137 ug. From 150 Assessment & Plan (01/13/2018 10:07 AM PAROLE AGENT): Check tsh on return Assessment & Plan (05/13/2017 11:08 AM CDT): tsh to low at .07 and when low this means the blood levels of thyroid to High. On .150 and will go to .125 and see if n ot allow the tsh to drop b ack to n l. Assessment & Plan (01/15/2017 9:47 AM PAROLE AGENT): Check tsh on return Resolved Problems Problem Noted Date Diagnosed Date Resolved Date Encounter for screening colonoscopy 03/04/2023 03/13/2023 Smoker 06/21/2021 03/22/2022 Assessment & Plan (06/21/2021 2:38 PM CDT): Lo does screening ct of chest BMI 27.0-27.9,adult 10/25/2016 11/01/19 22 Assessment & Plan (06/21/2021 2:38 PM CDT): Wt stable Assessment & Plan (05/26/2020 10:50 AM CDT): Work to dorp some wt. Assessment & Plan (02/26/2020 11:20 AM PAROLE AGENT): Work to stop a few lbs. Assessment & Plan (09/16/2019 3:31 PM CDT): Work to keep stable Assessment & Plan (01/26/2019 8:36 AM PAROLE AGENT): Work to keep wt down Assessment & Plan (05/14/2018 11:59 AM CDT): Watch wt Assessment & Plan (05/13/2017 11:07 AM CDT): Being over weight is dealt with by restriction of you daily calories and increasing your calorie needs with increases in your work load/exercises or just increases in daily activity. There are different programs for weight loss and they all are felt to be relatively equally effective and you can make a choice as to what works for you. Pulmonary fibrosis 10/25/2016 Assessment & Plan (05/26/2020 10:47 AM CDT): Ongoing smoker and not able to stop choronic cough whtout limits for now Assessment & Plan (02/26/2020 11:20 AM PAROLE AGENT): Ongoing smoker and awre need to quit Assessment & Plan (09/16/2019 3:30 PM CDT): Ongoing smoker Assessment & Plan (05/14/2018 12:00 PM CDT): Off cig now Assessment & Plan (01/13/2018 10:10 AM PAROLE AGENT): tobaccon driving thius and Wants to retry chantix. Discussed quiting and what it takes Assessment & Plan (05/13/2017 11:09 AM CDT): Cough essentiall g gone and no limits but admits to smoking on andn off. Fall flu shots Assessment & Plan (10/25/2016 11:36 AM CDT): cxr with scarring on it and control exposure to paint fumes and cig smoke to prevent worsening Pneumonia of both lower lobe s due to infectious organism 10/17/2016 05/13/2017 Assessment & Plan (01/15/2017 9:48 AM PAROLE AGENT): Clinically nl. Will ask for a cxr on way out to Review old andnew cxr. Assessment & Plan (10/25/2016 11:31 AM CDT): Much better and see's new self. Leaving the brace off to help take more conssitent and bigger breaths. Assessment & Plan (10/17/2016 4:48 PM CDT): xry changes. Cough.fever and Pneumonia. Start zithromax 500 and in sevf eral days add the levaquin if not seeing better Neurogenic claudication 05/05/201308/18 Overview (05/25/2016): Neurogenic claudication Acute chest pain 10/31/2021 Immunizations Immunization Administration Dates Next Due Influenza, Quadrivalent, Hig h Dose, Preservative Free, Intrr 11/07/2022,10/31/2021,02/14/2021,02/25 Influenza, Quadrivalent, Spl it, Preservative Free, Intradermal 11/03/2015 Influenza, Quadrivalent, Spl it, Preservative Free, Intramuscular 01/26/2019,01/13/2018,01/15/2017 Influenza, Split 12/24/2012,12/12/2011, 0 Influenza, Trivalent, High D ose, Split, Preservative Free, Intramuscular 11/12/2023 Influenza, Trivalent, IM (MDV) 12/16/2008,2007 Influenza, Trivalent, Recomb inant, Egg Free, Preservative Free, Antibiotic Free, IM (FLUBLOK) 01/19/2014 Influenza, Unspecified 11/12/2023(Deferr ed: Patient Refused),10/31/2021(Deferred: Patient Refused),11/19/2019(Deferred: Patient Refused),03/30/2019(Deferred: Patient Refused) Moderna SARS-CoV-2 Monovalen t Vaccination (12+ YRS) 02/13/2022,07/05/2021,12/12/2020,04/13,03/18/2020 Pneumococcal Conjugate PCV 13 01/15/2017 Pneumococcal Polysaccharide PPV23 05/05/2013 Tdap 05/05/2013 Social History Tobacco Use Types Packs/Day Years Used Date Smoking Tobacco: Every Day Cigarettes 0.1 28 Smokeless Tobacco: Former Tobacco Cessation:Ready to Q uit: No; Counseling Given: Yes Alcohol Use Standard Drinks/Week Comments No 0 (1 standard drink = 0.6 oz pur e alcohol) AUDIT-C Answer Date Recorded Q1: How often do you have a drink containing alcohol? Never 03/18/2024 Q2: How many drinks containi ng alcohol do you have on a typical day when you are drinking? Patient does not drink Q3: How often do you have si x or more drinks on one occasion? Never 03/18/2024
--- OUTSIDE RECORDS SUMMARY | 2024-07-04 17:00 | XMS_ITS | Clinical Summary ---
Author Organization [facility] Address [address] [place] [address] Phone Care Team Providers Care Flour Worker Name Role Phone Rehan Perez MD Primary Care Provider Unavaila ble Allergies Active Allergy Reactions Criticality Noted Date Comments Penicillins Swelling 01/05/2020 SWELLING OF GUMS AND LIPS Medications atorvastatin (Lipitor) 40 MG Tablet Take 40 mg by mouth daily. Active cyclobenzaprine (FLEXERIL) 10 MG Tablet Take 10 mg by mouth 3 times daily as needed. Active esomeprazole (NexIUM) 40 MG CAPSULE DELAYED RELEASE Take 40 mg by mouth every morning (before breakfast). Active fenofibrate 160 MG Tablet Take 160 mg by mouth daily. Active gabapentin (Neurontin) 400 MG Capsule Take 400 mg by mouth 3 times daily. Active irbesartan-hydr oCHLOROthiazide (Avalide) 150-12.5 MG Tablet Take 1 Tab by mouth daily. Active levothyroxine (Synthroid) 112 MCG Tablet Take 112 mcg by mouth daily. Active liraglutide (Victoza) 18 MG/3ML Solution Pen-injector 1.8 mg by Subcutaneous route daily. Active Metoprolol Tartrate (LOPRESSOR PO) Take 25 mg by mouth 2 times daily. Active HYDROcodone-dilshad taminophen (NORCO) 5-325 MG TabletIndicatio ns:Finger laceration Take 1 Tablet by mouth every 6 hours as needed for Moderate or more severe pain. 10 Tablet 2 Active Active Problems Problem Noted Date Diagnosed Date Pneumonia due to infectious organism 01/08/2020 Hypertension 01/08/2020 Type 2 diabetes mellitus 01/08/2020 GERD (gastroesophageal reflux disease) 0 Hypothyroidism 01/08/2020 Leukocytosis 01/08/2020 Herniated lumbar intervertebral disc 01/07/2020 Immunizations Immunization Administration Dates Next Due Influenza Vaccine, Quadrivalent, PF 12/20(Deferred: - patient has pneumonia) Family History Medical History Relation Name Comments Heart Attack Father Cancer Mother LUEKEMIA Relation Name Status Comments Father Mother Social History Tobacco Use Types Packs/Day Years Used Date Smoking Tobacco: Some Days Cigarettes 1 25 Smokeless Tobacco: Never Alcohol Use Standard Drinks/Week Comments Not Currently 0 (1 standard drink = 0.6 oz pur e alcohol) Sex and Gender Information Value Date Recorded Sex Assigned at Not on file Legal Sex Male 7:29 PM CDT Gender Identity Not on file Sexual Orientation Not on file Last Filed Vital Signs Vital Sign Reading Time Taken Comments Blood Pressure 124/78 09/11/2021 7:15 PM CDT Pulse 71 09/11/2021 3:57 PM CDT Temperature 36.4 C (97.5 F) 09/11/2021 3:57 PM CDT Respiratory Rate 18 09/11/2021 3:57 PM CDT Oxygen Saturation 94% 09/11/2021 3:57 PM CDT Inhaled Oxygen Concentration - - Weight 91.6 kg (202 lb) 09/11/2021 3:57 PM CDT Height 182.9 cm (6') 09/11/2021 3:57 PM CDT Body Mass Index 27.4 09/11/2021 3:57 PM CDT Plan of Treatment Health Maintenance Due Date Last Done Comments Diabetes: Eye Exam 1954 Diabetes: Foot Exam 1955 Hepatitis C Virus (HCV) Screening 1955 Colonoscopy 07/24/1999 Colorectal Cancer Screening 07/24/1999 Cologuard 2004 Immunochemical Fecal Occult Blood 2004 Zoster Immunization (1 of 2) 2004 Diabetes: Hemoglobin A1c 07/03/2020 01/04/2020 Diabetes: Nephropathy Screening 01/08/2021 01/09/2020, 01/04/2020 Pneumococcal Immunization (50+ years) (3 of 3 - PCV20 or PCV21) 01/15/2022 01/15/2017, 05/05/2013 Influenza Immunization (#1) 2023 12/2 09/2020, 02/26/2020, 01/26/2019, Additional history exists SARS-COV-2 Immunization ( season) 2023 07/05/2021, 12/12/2020, 04/13/2020, Additional history exists Respiratory Syncytial Virus (RSV) Immunization (Adult) (1 - 1-dose 75+ series) 2029 DTaP/Tdap/Td Immunization Discontinued 05/05/2013 TdaP Immunization Completed 05/05/2013 Pneumococcal Immunization Combined Discontinued 01/15/2017, 05/05/2013 Hepatitis B Immunization Aged Out No longer eligible based on patient's age to complete this topic Meningococcal Immunization (ACWY) Aged Out No longer eligible based on patient's age to complete this topic Rotavirus Immunization Aged Out No lo nger eligible based on patient's age to complete this topic Procedures Procedure Name Priority Date/Time Associated Diagnosis Comments CMP (COMPREHENSIVE METABOLIC PANEL) Routine 01/09/2020 5:32 AM CORN COOKER HEMOGLOBIN A1C W/ ESTIMATED GLUCOSE Routine 01/04/2020 5:34 PM CORN COOKER Preoperative examination Encounter for preoperative screening laboratory testing for COVID-19 virus from Last 3 Months or Most Recently Relevant to Health Maintenance Results * (ABNORMAL) CMP (Comprehensive Metabolic Panel) (01/09/2020 5:32 AM CORN COOKER) SODIUM 143 136 - 144 mmol/L 01/09/2020 6:56 AM CORN COOKER [facility] POTASSIUM 5.3(H) 3.5 - 5.1 mmol/L 01/09/2020 6:56 AM CORN COOKER [facility] CHLORIDE 108 100 - 110 mmol/L 01/09/2020 6:56 AM CORN COOKER [facility] CO2, VENOUS 26 22 - 32 mmol/L 01/09/2020 6:56 AM CORN COOKER [facility] ANION GAP 14.3 8.0 - 20.0 mmol/L 01/09/2020 6:56 AM CORN COOKER [facility] GLUCOSE 145(H) 70 - 99 mg/dL 01/09/2020 6:56 AM CORN COOKER [facility] BUN 13 8 - 23 mg/dL 01/09/2020 6:56 AM [facility] CREATININE, BLOOD 1.14 0.80 - 1.30 mg/dL 01/09/2020 6:56 AM [facility] BUN/CREATININE RATIO 11(L) 12 - 20 ratio 01/09/2020 6:56 AM [facility] TOTAL PROTEIN 6.1 6.0 - 8.3 g/dL 01/09/2020 6:56 AM [facility] ALBUMIN 3.7 3.5 - 5.2 g/dL 01/09/2020 6:56 AM [facility] Comment: The colormetric methods used for the determination of Albumin may lead to falsely elevated test results in patients suffering from renal failure or insufficiency due to interference with other proteins. A/G RATIO 1.5 1.0 - 2.0 01/09/2020 6:56 AM [facility] CALCIUM 9.1 8.9 - 10.3 mg/dL 01/09/2020 6:56 AM [facility] T BILI 0.5 <=1.2 mg/dL 01/09/2020 6:56 AM [facility] SGOT (AST) 17 <=40 U/L 01/09/2020 6:56 AM [facility] SGPT (ALT) 30 <=41 U/L 01/09/2020 6:56 AM [facility] ALKALINE PHOSPHATASE 57 40 - 130 U/L 01/09/2020 6:56 AM [facility] GFR, EST. NONAFRICAN >60 >=60 01/09/2020 6:56 AM [facility] GFR, EST. >60 >=60 020 6:56 AM [facility] Comment: Creatinine Clearance is the preferred criteria for selecting drug dose adjustments in renally impaired patients. The GFR is provided as additional pertinent clinical information. GFR is reported in mL/min/1.73 sq m. Blood BLOOD SPECIMEN / Unknown Venipuncture / Unknown 01/09/2020 5:32 AM CORN COOKER 01/09/2020 6:15 AM CORN COOKER us Sara Dean TUGGER OPERATOR, GAMES MANAGER CHEMISTRY ORDERAB LES Final Result [facility] [address] [place] [address] * (ABNORMAL) HEMOGLOBIN A1C W/ ESTIMATED GLUCOSE (01/04/2020 5:34 PM CORN COOKER) HGB-A1C 7.6(H) 4.0 - 6.0 % 01/04/2020 6:53 PM CORN COOKER [facility] Est Average Glucose 171.4 mg/dL 01/04/2020 6:53 PM CORN COOKER [facility] Blood Venipuncture / Unknown 01/04/2020 5:34 PM CORN COOKER 01/04/2020 6:02 PM CORN COOKER Narrative [facility] - 01/04/2020 6:53 PM CORN COOKER HEMOGLOBIN A1C: DIABETIC PATIENTS: WELL-CONTROLLED: 6.2 - 7.0 INTERMEDIATE WELL-CONTROLLED: 7.0 - 9.0 POORLY-CONTROLLED: >9.0 us Dima Montez MD CHEMISTRY ORDERABLES Final Resul t Performing Organization Address City/[facility] Co de Phone Number [facility] [address] [place] [address] from Last 3 Months or Most Recently Relevant to Health Maintenance [facility] Directives * Full Code (Latest Code Status on File) Date Activated Date Inactivated Comments 01/08/2020 11:41 AM 01/09/2020 1:05 PM CPR-Full Treatment: FULL ARREST: Attempt Resuscitation/CPR wit intubation and mechanical ventilation. PRE-ARREST: Use entire range of life support measures to stabilize the patient. Care Teams Flour Worker Relationship Specialty Start Date End Date Rehan Perez MD [address] [place] [address] [id number] PCP - General Internal Medicine 01/04/20
--- OUTSIDE RECORDS SUMMARY | 2024-07-04 17:00 | XMS_ITS | Encounter Summary ---
Author Organization [facility] Address [address] [place] [address] Phone Care Team Providers Care Shake Feeder Name Role Phone Rehan Perez MD Primary Care Provider Robert antunez Encounter Details Date Type Department Care Team (Latest Contact Info) Description 01/05/2020 Transcribe Orders [facility] [address] [place] [address] Dima Montez MD [address] [place] [address] Pre-op testing (Primary Dx) Social History Tobacco Use Types Packs/Day Years [...] on file Sexual Orientation Not on file COVID-19 Exposure Response Date Recorded In the last month, have you been in contact with someone who was confirmed or suspected to have Coronavirus / COVID-19? No / Unsure 01/07/2020 7:07 AM REMARKETING MANAGER documented as of this encounter Plan of Treatment Not on file documented as of this encounter Procedures Procedure Name Priority Date/Time Associated Diagnosis Comments TYPE AND SCREEN(REPEAT) Routine 01/04/2020 8:34 AM REMARKETING MANAGER Pre-op testing documented in this encounter Results * TYPE AND SCREEN(REPEAT) (01/04/2020 8:34 AM REMARKETING MANAGER) ABO TYPING A 01/05/2020 11:02 AM REMARKETING MANAGER [facility] RH Positive 01/05/2020 11:02 AM REMARKETING MANAGER [facility] ABSC Negative 01/05/2020 11:02 AM REMARKETING MANAGER [facility] Blood Venipuncture / Unknown 01/04/2020 8:34 AM REMARKETING MANAGER 01/05/2020 9:45 AM REMARKETING MANAGER us Dima Montez MD BLOOD BANK ORDERABLES Edited Res ult - Final [facility] [address] [place] [address] documented in this encounter Visit Diagnoses Diagnosis Pre-op testing- Primary Preoperative examination, unspecified documented in this encounter Additional Health Concerns Infection Onset Date Last Indicated Resolved Time COVID - 19 01/04/2020 01/04/2020 01/08/2020 8:14 AM REMARKETING MANAGER documented as of this encounter Care Teams Shake Feeder Relationship Specialty Start Date End Date Rehan Perez MD [address] [place] [address] [place] [id number] PCP - General Internal Medicine 01/04/20 documented as of this encounter
--- OUTSIDE RECORDS SUMMARY | 2024-07-04 17:00 | XMS_ITS | Encounter Summary ---
Author Organization [facility] Address [address] [place] [address] Phone Care Team Providers Care Hiv Cts Specialist Name Role Phone Rehan Perez MD Primary Care Provi josefina Rehan Perez MD Primary Care Provi josefina Hayder Koroma Primary Care Provider Encounter Details Date Type Department Care Team (Late st Contact Info) Description 04/29/2017 Orders Only [facility] ProviderJayme MD [address] [place] [id number] Social History Tobacco Use Types Packs/Day Years Used Date Smoking Tobacco: Former Smokeless Tobacco: Former Alcohol Use Standard Drinks/Week Comments No 0 (1 standard drink = 0.6 oz pur e alcohol) Sex and Gender Information Value Date Recorded Sex Assigned at Not on file Legal Sex Male 2:49 PM SPOOL CLEANER HAND Gender Identity Not on file Sexual Orientation Not on file documented as of this encounter Plan of Treatment Not on file documented as of this encounter Procedures Procedure Name Priority Date/Time Associated Diagnosis Comments DISCHARGE LABORATORY CUMULATIVE REPORT 04/29/2017 12:00 AM CDT documented in this encounter Results * DISCHARGE LABORATORY CUMULATIVE REPORT (04/29/2017 12:00 AM CDT) Narrative 04/29/2017 12:00 AM CDT Ordered by an unspecified provider. Historical Provider LAB BLOOD ORDERABLES Cassy l Result documented in this encounter Visit Diagnoses Not on filedocumented in this encounter Care Teams Hiv Cts Specialist Relationship Specialty Start Date End Date Rehan Perez MD PCP - General 05/18/16 10/18/21 Rehan Perez MD PCP - General 10/19/21 10/30/21 Hayder Koroma PA [address] [place] [address] [place] [id number] PCP - General Internal Medicine 10/31/21 documented as of this encounter
[2024-07-04 17:15] LABS: Basophils Absolute Auto 0.08 K/mm3 (0.00-0.10); Basophils Percent Auto 0.9 % (0.0-1.0); Eosinophils Absolute Auto 0.07 K/mm3 (0.02-0.50); Eosinophils Percent Auto 0.8 % (1.0-6.0); Hematocrit 51.5 % (37.0-46.0); Immature Granulocyte Absolute 0.05 K/mm3 (0.00-0.00); Immature Granulocyte Percent A 0.6 % (0.0-0.0); Lymphocytes Absolute Auto 1.59 K/mm3 (1.10-4.50); Lymphocytes Percent Auto 17.5 % (18.0-42.0); Mean Corpuscular Hemoglobin 30.5 pg (27.0-31.0); Mean Corpuscular Volume 92.5 fL (78.0-102.0); Mean Platelet Volume 10.9 fl (8.7-11.0); Monocytes Absolute Auto 0.54 K/mm3 (0.10-0.90); Monocytes Percent Auto 5.9 % (2.0-11.0); Neutrophils Absolute Auto 6.75 K/mm3 (1.70-7.20); Neutrophils Percent Auto 74.3 % (50.0-70.0); Platelet Count Result 189 K/mm3 (150-420); Red Blood Count 5.57 M/mm3 (4.70-6.10); Red Cell Distribution Width 12.6 % (11.6-14.4); White Blood Count 9.1 K/mm3 (4.8-10.8)
[2024-07-04 17:32] LABS: Alanine Aminotransferase 27 U/L (6-50); Albumin Level 4.3 g/dL (3.5-5.1); Alkaline Phosphatase 42 U/L (38-126); Anion Gap 5 mmol/L (4-12); Aspartate Amino Transferase 28 U/L (17-59); Bilirubin,Total 0.7 mg/dL (0.2-1.3); Blood Urea Nitrogen 12 mg/dL (9-20); Carbon Dioxide 26 mmol/L (22-30); Chloride 106 mmol/L (98-107); Estimated CRCL calculation 65 ml/min; Estimated Glomerular Filt Rate > 60; Glucose 131 mg/dL (65-110); Osmolality Calculated 285 mOsm/kg (285-295); Sodium 137 mmol/L (137-145); Total Protein 7.2 g/dL (6.3-8.2)
[2024-07-04 17:34] LABS: Partial Thromboplastin Time 27.3 Sec (23.9-30.70)
[2024-07-04 17:44] LABS: Potassium 4.5 mmol/L (3.4-5.0)
[2024-07-04] MEDS: cloNIDine HCL 0.1 MG TABLET PO (17:58)
[2024-07-04 19:51] LABS: Erythrocyte Sedimentation Rate 2 mm/hr (0-20)
== END 2024-07-04 18:55 | disposition home or self-care (01) ==
PROVIDERS: Emergency Provider Emergency Medicine; PCP Physician Assistant
DX: I10 Essential (primary) hypertension (principal); R51.9 Headache, unspecified; E11.9 Type 2 diabetes mellitus without complications; E78.5 Hyperlipidemia, unspecified; Z86.73 Personal history of transient ischemic attack (TIA), and cerebral infarction without residual deficits
CPT/HCPCS: 36415; 70450; 71045; 80053; 84484; 85025; 85610; 85652; 85730; 93005; 96374; 96375; 99284; A9270; J2270; J2405